=== PATIENT | male | born 1930 | race American Indian/Alaskan Native ===

== ENCOUNTER 2016-11-28 03:32 | Inpatient (IN) | payer MEDICARE ==
[2016-11-28 05:17] LABS: Basophils % (Auto) 0.3 % (0.0-1.8); Hematocrit 44.5 % (35.5-45.6); Hemoglobin 14.1 gm/dl (11.8-15.2); Mean Corpuscular HGB Conc 32 % (32-34); Mean Corpuscular Hemoglobin 28 pg (28-32); Mean Corpuscular Volume 89 fl (84-94); Platelet Count 239 K/mm3 (140-440); Red Blood Count 4.98 M/mm3 (3.65-5.03); Red Cell Distribution Width 16.2 % (13.2-15.2)
[2016-11-28 05:28] LABS: INR 1.1 (0.87-1.13)
[2016-11-28 05:44] LABS: Creatine Kinase MB 2.1 ng/mL (0.0-4.0)
[2016-11-28 05:48] LABS: Alanine Aminotransferase 6 units/L (7-56); Albumin 3.7 g/dL (3.9-5); Alkaline Phosphatase 69 units/L (35-129); Anion Gap 22 mmol/L; BUN/Creatinine Ratio 11.25; Bilirubin,Total 0.3 mg/dL (0.1-1.2); Blood Urea Nitrogen 9 mg/dL (9-20); Calcium 8.9 mg/dL (8.4-10.2); Carbon Dioxide 25 mmol/L (22-30); Chloride 96.1 mmol/L (98-107); Creatine Kinase 48 units/L (55-170); Glucose 244 mg/dL (75-100); Potassium 4.4 mmol/L (3.6-5.0); Sodium 139 mmol/L (137-145); Total Protein 7.3 g/dL (6.3-8.2)
--- NOTE | 2016-11-28 06:26 | Emergency Department Report ---
HPI - General Chief Complaint: Chest Pain Time Seen by Provider: 11/28/16 06:11 - HPI HPI: Room 1 The patient is a 85-year-old male presenting with a chief complaint chest pain. States last night the patient began complaining of intermittent left-sided chest pain. The patient acknowledges shortness of breath but denies nausea or vomiting. Patient states the pain has been intermittent and is not currently present. The patient has a history of dementia and coronary artery disease cc requiring multiple cardiac stents most recently in 2006). 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) Hx Diabetes: Yes Hx Headaches / Migraines: Yes Hx Dementia: Yes Additional medical history: Parkinsons, prev TIA, Aneurysm - Surgical History Hx Coronary Stent: Yes (Multiple) - Family History Family history: no significant - Social History Smoking Status: Former Smoker (none 50 years) Substance Use Type: None - Medications Home Medications: Home Medications Medication Instructions Recorded Confirmed Last Taken Type Aspirin [Clio Aspirin] 162 mg PO DAILY 05/01/14 11/28/16 2 Days Ago History Esomeprazole Magnesium [NexIUM] 40 mg PO DAILY 05/01/14 11/28/16 2 Days Ago History Finasteride [Proscar] 5 mg PO QDAY 05/15/14 11/28/16 2 Days Ago History Dorzolamide HCl/Timolol Maleat 1 drop OP BID 05/19/14 11/28/16 2 Days Ago History [Dorzolamide-Timolol 22.3/6.8 mg/ml] Fluorometholone [Fml Forte 0.25% 1 drop OD BID 05/19/14 11/28/16 2 Days Ago History eye drops] Donepezil [Aricept] 10 mg PO QDAY 06/18/14 11/28/16 2 Days Ago History Insulin Detemir [Levemir Flextouch] 1 unit SQ PRN PRN 10/08/15 11/28/16 Unknown History Atorvastatin Calcium [Lipitor] 20 mg PO QHS #30 cc 10/12/15 11/28/16 2 Days Ago Rx Clopidogrel Bisulfate [Plavix] 75 mg PO DAILY #30 tablet 10/12/15 11/28/16 Unknown Rx Rasagiline Mesylate [Azilect] 1 mg PO DAILY 11/28/16 11/28/16 Unknown History ED Review of Systems ROS: Stated complaint: CHEST PAIN Other details as noted in HPI Comment: All other systems reviewed and negative Constitutional: denies: chills, fever Eyes: denies: eye pain, eye discharge, vision change ENT: denies: ear pain, throat pain Respiratory: shortness of breath Cardiovascular: chest pain Endocrine: no symptoms reported Gastrointestinal: denies: abdominal pain, nausea, diarrhea Genitourinary: denies: urgency, dysuria Musculoskeletal: denies: back pain, joint swelling, arthralgia Skin: denies: rash, lesions Neurological: denies: headache, weakness, paresthesias Psychiatric: denies: anxiety, depression Hematological/Lymphatic: denies: easy bleeding, easy bruising Physical Exam - Physical Exam Vital Signs: Vital Signs 11/28/16 11/28/16 04:33 05:56 Temperature 97.7 F Pulse Rate 95 H Respiratory 16 16 Rate Blood Pressure 193/111 O2 Sat by Pulse 100 100 Oximetry Physical Exam: GENERAL: The patient is well-developed well-nourished elderly male lying on stretcher not appearing to be in acute distress. [] HEENT: Normocephalic. Atraumatic. NECK: Supple. Midline CHEST/LUNGS: Clear to auscultation. There is no respiratory distress noted. HEART/CARDIOVASCULAR: Regular. There is tachycardia. There is no gallop rub or murmur. ABDOMEN: Abdomen is soft, nontender. Patient has normal bowel sounds. There is no abdominal distention. SKIN: There is no rash. There is no edema. There is no diaphoresis. NEURO: The patient is awake and alert. The patient is cooperative. The patient has normal speech MUSCULOSKELETAL: There is no evidence of acute injury. ED Course Vital Signs 11/28/16 11/28/16 04:33 05:56 Temperature 97.7 F Pulse Rate 95 H Respiratory 16 16 Rate Blood Pressure 193/111 O2 Sat by Pulse 100 100 Oximetry ED Medical Decision Making - Lab Data Result diagrams: 11/28/16 04:58 11/28/16 04:58 Laboratory Tests 01/18/17 01/18/17 01/18/17 04:58 04:58 04:58 WBC 10.0 RBC 4.98 Hgb 14.1 Hct 44.5 MCV 89 MCH 28 MCHC 32 RDW 16.2 H Plt Count 239 Lymph % (Auto) 6.3 L [place] % (Auto) 4.2 Eos % (Auto) 0.0 Baso % (Auto) 0.3 Lymph # 0.6 L [place] # 0.4 Eos # 0.0 Baso # 0.0 Seg Neutrophils % 89.2 H Seg Neutrophils # 8.9 H PT 14.1 INR 1.10 Sodium 139 Potassium 4.4 Chloride 96.1 L Carbon Dioxide 25 Anion Gap 22 BUN 9 Creatinine 0.8 Estimated GFR > 60 BUN/Creatinine Ratio 11.25 Glucose 244 H Calcium 8.9 Total Bilirubin 0.3 AST 12 ALT 6 L Alkaline Phosphatase 69 Total Creatine Kinase 48 L CK-MB (CK-2) 2.1 CK-MB (CK-2) Rel Index 4.3 H Troponin T < 0.010 Total Protein 7.3 Albumin 3.7 L Albumin/Globulin Ratio 1.0 - EKG Data -: EKG Interpreted by Me EKG shows normal: sinus rhythm Rate: normal - EKG Data When compared to previous EKG there are: no significant change Interpretation: unchanged when compared t (10/07 2015) - Radiology Data Radiology results: report reviewed (CT chest), image reviewed (x-ray, CT chest) interpreted by me: Chest x-ray-line visualized along the periphery of the left lung concerning for pneumothorax. However lung markings are seen distal to this line. No focal infiltrates. Will order a CT of the chest CT chest (read by radiologist)-no PE, no dissection - Differential Diagnosis ACS, pericarditis, GERD, pneumothorax, PE Critical care attestation.: If time is entered above; I have spent that time in minutes in the direct care of this critically ill patient, excluding procedure time. ED Disposition Clinical Impression: Hypertension, Chest pain Disposition: OP ADMITTED IP TO THIS HOSP Is pt being admited?: Yes Does the pt Need Aspirin: Yes Condition: Fair Instructions: Hypertension (ED), Chest Pain (ED) Referrals: PRIMARY CARE, [Primary Care Provider] - 3-5 Days Time of Disposition: 07:12 (hospitalist paged)
[2016-11-28] MEDS ORDERED: ASPIRIN PO ONE (06:31)
[2016-11-28] MEDS ORDERED: SUBLIMAZE IV ONE (06:46)
--- NOTE | 2016-11-28 07:55 | Cat Scan Report ---
FINAL REPORT PROCEDURE: CT ANGIO CHEST TECHNIQUE: Computerized axial tomographic angiography of the chest and pulmonary arteries was performed after the IV injection of iodinated nonionic contrast. The image data was postprocessed using maximum intensity projection (MIP) and 2-dimensional multiplanar reformatted (MPR) techniques. The examination is specifically tailored to the evaluation of the pulmonary arteries per clinical request. HISTORY: Chest pain. Shortness of breath. Short of breath 786.09, chest pain 786.50 COMPARISON: Prior chest CT exam May 16, 2014 FINDINGS: Heart and pericardium: Normal. Thoracic aorta: Normal. Pulmonary vasculature: Normal. No pulmonary emboli. Lymph nodes: There are some nonspecific less than 1 centimeter mediastinal nodes but there is no CT evidence of distinct adenopathy by size criteria.. Lungs: There is moderate patchy increased interstitial density in the posterior right lower lobe. This was present to a lesser degree on the prior scan. Therefore there may be some element of chronic fibrotic change. This chronic fibrotic change may have progressed somewhat since prior exam although it would be impossible to exclude a mild acute interstitial infiltrate superimposed on the chronic changes. The lungs appear clear otherwise with minimal scattered fibrotic change elsewhere.. Pleural space: No effusion, thickening, or pneumothorax. Musculoskeletal structures: Minimal bony degenerative change noted.. Upper abdominal structures: There is a 5.5 centimeter cyst in the partially imaged right kidney. This is similar to the prior scan. Several small stones are noted layering dependently in the gallbladder. These were also present previously but are slightly increased in number. The enhancing focus in the upper liver described on the prior exam is not seen on today's study. There may be a small cyst in the left kidney but this is too small to characterize. This is actually smaller than on the prior scan. IMPRESSION: 1. There is no CT evidence of pulmonary embolus. 2. There is no CT evidence of thoracic aortic dissection or aneurysm. 3. Moderate patchy increased interstitial density in posterior right lower lobe noted. This was present on the prior scan but has increased slightly. Therefore this may be some slightly progressive chronic focal fibrotic change in the right lower lobe. However would be possible to exclude some element of mild acute interstitial infiltrate superimposed upon the chronic changes. 4. Multiple small stones noted in the gallbladder on the lower aspect of this chest scan. These have increased in number since prior exam. There is a large 5.5 centimeter right renal cyst, unchanged.
[2016-11-28] MEDS ORDERED: LANTUS 10 UNIT SQ PRN ×2 (08:45→19:53)
--- NOTE | 2016-11-28 08:48 | Admit Criteria Form ---
Admission Criteria Documentation: CARDIOLOGY GRG Clinical Indications for Admission to Inpatient Care ( Place 'X' for any and all applicable criteria): Hospital admission is needed for appropriate care of the patient because of ANY ONE of the following (1): [ ] I. Hemodynamic instability as indicated by ALL of the following (1)(2)(3) (4)(5) [ ]a) Vital signs or other findings not as expected for chronic patient condition or baseline [ ]b) Instability indicated by ANY ONE of the following: [ ]i) Hypotension [ ]ii) Symptomatic Tachycardia unresponsive to treatment ( e.g., analgesia, fluids, sedation as indicated) [ ]iii) Inadequate perfusion indicated by ANY ONE of the following: [ ] 1) Lactic acidosis (> 2 mmol/L) [ ] 2) New abnormal capillary refill (> 3 seconds) [ ] 3) Reduced urine output [ ] 4) New altered mental status [ ]iv) Orthostatic vital sign changes unresponsive to treatment (e.g., fluids) [ ]v) IV inotropic or vasopressor medication required to maintain adequate blood pressure or perfusion [ ] II. Severe heart failure as indicated by ANY ONE of the following(17)(18) [ ]a) Respiratory distress [ ]b) Hypotension [ ]c) Anasarca (refractory to outpatient therapy) [ ]d) Cardiac arrhythmias of immediate concern [ ]e) Myocardial ischemia [ ] III. Cardiac arrhythmias or findings of immediate concern indicated by ANY ONE of the following (19)(20): [ ] a) Heart rhythms that are inherently dangerous or unstable indicated by ANY ONE of the following (21)(22)(23): [ ] i) Resuscitated ventricular fibrillation or cardiac arrest [ ] ii) Ventricular escape rhythm [ ] iii) Sustained ventricular tachycardia (30 seconds or more of ventricular rhythm at greater than 100 beats per minute) [ ] iv) Nonsustained ventricular tachycardia and ANY ONE of the following: [ ] 1) Suspected cardiac ischemia as cause or consequence of ventricular tachycardia [ ] 2) In setting of acute myocarditis [ ] b) Unstable cardiac conduction defects indicated by ANY ONE of the following(23)(24)(25) [ ] i) Type II second-degree atrioventricular block [ ]ii) Third-degree atrioventricular block [ ]iii) New-onset left bundle branch block with suspected myocardial ischemia [ ]c) Any heart rhythm and ANY ONE of the following (21)(22)(26)(27) (28) [ ] i) Continuous long-term ECG monitoring needed (e.g., initiation of drug requiring monitoring for more than 24 hours) [ ] ii) Patient has automatic implanted cardioverter defibrillator that is repeatedly firing, malfunctioning, or in need of immediate adjustment of settings beyond the scope of ambulatory or observation care [ ]d) Heart rhythms of concern due to ANY ONE of the following: [ ] i) Hypotension [ ] ii) Respiratory distress [ ] iii) Association with other significant symptoms (e.g., bradycardia with syncope or ongoing dizziness, supraventricular tachycardia with chest pain (14)(15)(17) [ ] IV. Monitoring for cardiac contusion beyond the scope of observation care needed [A](30)(31)(32) [ ] V. Surgical or device complication (e.g., valve replacement complication , pacemaker dysfunction) (35)(41)(44)(45)(46) [ ] . Inpatient palliative care needed. [B](49) Also use Inpatient Palliative Care Criteria [ ] VII. Nonbacterial thrombotic (marantic) endocarditis (36)(43)(47)(48) [X ] VIII. Cardiology condition, symptom, or finding for which emergency and observation care has failed or are not considered appropriate. [ ] IX. Acute valvular disease requiring inpatient as indicated by ANY ONE of the following (41) [ ]a) Acute valvular regurgitation (42) [ ]b) Noninfectious valvulitis (43) [ ]c) Obstructive valve thrombosis [ ]d) Paravalvular leak [ ]e) Other significant valvular disorder remaining after emergency or observation level of care (as appropriate) [ ]X. Pericardial disease requiring inpatient treatment as indicated by ANY ONE of the following (33)(34)(35)(36)(37) [ ]a) Suspected tamponade (38)(39)(40) [ ]b) Hemopericardium [ ]c) Other significant pericardial disorder remaining after emergency or observation level of care (as appropriate) [ ] XI. Cardiac ischemia beyond scope of emergency and observation care. [ ] XII. Hypertension requiring inpatient treatment as indicated by ANY ONE of the following (6)(7)(8) [ ]a) SBP greater than 220 mm Hg or DBP greater than 120 mmHg despite treatment [ ]b) SBP greater than 140 mm Hg or DBP greater than 100 mm Hg with evidence of acute end organ damage as indicated by ANY ONE of the following [ ] i) Altered mental status [ ] ii) Acute renal failure as indicated by new onset of ANY ONE of the following (9)(10)(11)(12)(13) [ ]1) 3-fold rise in serum creatinine from baseline [ ]2) Serum creatinine greater than 4 mg/dL ( 354 micromoles/L) with acute rise greater than 0.5 mg/dL (44.2 micromoles/L) [ ]3) Reduction of more than 75% in estimated glomerular filtration rate from baseline [ ]4) Estimated glomerular filtration rate less than 35 mL/min/1.73m2 (0.59 mL/sec/1.73m2) in child up to 18 years of age [ ]5) Cessation of urine output indicated by ALL of the following [ ]A. Adequate volume status [ ]B. Inadequate urine output as indicated by ANY ONE of the following [ ]a. Urine output less than 0.3 mL/kg/hr for 24 hours [ ]b. Anuria (urine output less than 0.1 mL/kg/hr) for 12 hours [ ] iii) Aortic dissection [ ] iv) Myocardial Ischemia [ ] v) Left ventricular heart failure [ ]vi) Retinal Hemorrhage [ ]vii) Other significant finding [ ]c) Hypertension in child requiring inpatient treatment as indicated by ALL of the following(14)(15)(16) [ ] i) Outpatient treatment not effective, not available, or not appropriate [ ]ii) SBP or DBP greater than 95th percentile for age [ ]iii) Evidence of acute end organ damage as indicated by ANY ONE of the following [ ]1) Altered mental status [ ]2) Acute renal failure as indicated by new onset of ANY ONE of the following(9)(10)(11)(12)(13) [ ]A. 3-fold rise in serum creatinine from baseline [ ]B. Serum creatinine greater than 4 mg/dL (354 micromoles/L) with acute rise greater than 0.5 mg/dL (44.2 micromoles/L) [ ]C. Reduction of more than 75% in estimated glomerular filtration rate from baseline [ ]D. Estimated glomerular filtration rate less than 35 mL/min/1.73m2 (0.59 mL/sec/1.73m2) in child up to 18 years of age [ ]E. Cessation of urine output indicated by ALL of the following [ ]a. Adequate volume status [ ]b. Inadequate urine output as indicated by ANY ONE of the following [ ]i) Urine output less than 0.3 mL/kg/hr for 24 hours [ ]ii) Anuria ( urine output less than 0.1 mL/kg/hr) for 12 hours [ ]3) Severe headache [ ]4) Visual disturbance [ ]5) Retinal hemorrhage [ ]6) Other significant finding [ ]XIII. Complications of transplanted heart indicated by ANY ONE of the following(61): [ ]a) Acute graft rejection requiring inpatient management (eg, intravenous immunosuppression)(62)(63) [ ]b) Acute graft heart failure indicated by ANY ONE of the following(64): [ ]i) Hemodynamic instability [ ]ii) Cardiac arrhythmias of immediate concern [ ]iii) Pulmonary edema that is very severe (eg, mechanical ventilation needed, imminent or likely, need for 100% oxygen to keep oxygen saturation above 90%) [ ]iv) Pulmonary edema that is persistent as indicated by ALL of the following: [ ]1) New need for oxygen therapy to keep oxygen saturation above 90% (or increased FiO2 need from baseline) [ ]2) Has not improved sufficiently with emergency department or observation care IV diuretics or other heart failure treatments[E] [ ]v) Altered mental status that is severe or persistent [ ]vi) Increased creatinine (new on laboratory test) with reduction of more than 50% in estimated glomerular filtration rate from baseline [ ]vii) Progressively (ongoing) rising creatinine (known from past laboratory test) with reduction of more than 25% in estimated glomerular filtration rate from baseline [ ]viii) Acute renal failure [ ]ix) Acute peripheral ischemia (eg, examination shows pulseless, cool, mottled, or cyanotic extremity) [ ]x) Pulmonary artery catheter monitoring needed [ ]xi) Other sign or symptom of heart failure requiring inpatient treatment (ie, too severe or not responsive to outpatient and observation care treatment) [ ]c) Infection requiring inpatient management (eg, Hemodynamic instability, need for intravenous antimicrobial treatment)(66)(67)(68)(69)(70) [ ]d) Cardiac allograft vasculopathy requiring inpatient management ( eg evidence of cardiac ischemia)(71) [ ]e) Other complication of transplanted heart (eg, stroke, severe pulmonary hypertension, severe valvular dysfunction) requiring inpatient management(72) The original [facility] [employer] content created by [email or web address] has been revised. The portions of the content which have been revised are identified through the use of italic text or in bold, and [facility] has neither reviewed nor approved the modified material. All other unmodified content is copyright [facility] [email or web address]. Please see references footnoted in the original [facility] [email or web address] edition 2016 Admission Criteria Met: Yes
[2016-11-28] MEDS ORDERED: ASPIRIN ONE (09:10)
[2016-11-28] MEDS ORDERED: ASPIRIN PO SCH (10:00)
[2016-11-28] MEDS ORDERED: NON-FORMULARY (Fluorometholone [Fml Forte 0.25% Eye Drops] 1 DROP) OD SCH (10:00)
[2016-11-28] MEDS ORDERED: RASAGILINE MESYLATE 1 MG PO SCH (10:00)
[2016-11-28] MEDS ORDERED: DORZOLAMIDE HCL OP SCH (10:00)
[2016-11-28] MEDS ORDERED: [UNRECOGNIZED DRUG - OTHER] OP SCH (10:00)
[2016-11-28] MEDS ORDERED: BABY ASPIRIN PO SCH (10:00)
[2016-11-28] MEDS ORDERED: TIMOLOL OP SCH (10:00)
[2016-11-28] MEDS ORDERED: NON-FORMULARY (Esomeprazole Magnesium [Nexium] 40 MG) PO SCH (10:00)
[2016-11-28] MEDS ORDERED: ZESTRIL ONE (10:57)
[2016-11-28] MEDS: PLAVIX PO SCH (11:19)
[2016-11-28] MEDS: PEPCID IV SCH (11:19)
[2016-11-28] MEDS: ZESTRIL PO SCH (11:19)
[2016-11-28] MEDS ORDERED: D50W (25GM) IV PRN (11:30)
[2016-11-28] MEDS ORDERED: MORPHINE IV PRN (11:30)
[2016-11-28] MEDS: PROSCAR PO SCH (12:41)
[2016-11-28] MEDS: ARICEPT PO SCH (12:41)
[2016-11-28] MEDS: NOVOLOG SUB-Q SCH ×3 (13:06→22:28)
--- NOTE | 2016-11-28 15:44 | Consultation ---
Addendum entered and electronically signed by LILO THOMPSON MD 11/28/16 19:10 : This patient is a frail, elderly 85-year-old man who is admitted with atypical chest pain. Well-known to our practice, history of coronary artery disease with multivessel coronary artery stents placed in March 2012. In late 2011, a repeat cardiac catheterization revealed all 3 vessel stents to be widely patent. Following his coronary interventions, has had difficulties with oral antiplatelet therapy. There was initial stent thrombosis while on Plavix, and this was changed to Effient. The patient developed some GI tolerance to Effient , and was switched to Brilinta. Immediately, Brilinta had to be discontinued in July 2014 after the patient developed a hemorrhagic CVA. He has an ischemic cardiomyopathy, most recent left ventricular ejection fraction was 35- 40%. Recommendations: Patient's chest pain is atypical, no further ischemic cardiac workup is indicated for nonanginal chest pain. We'll optimize medical therapy for underlying coronary artery disease. Due to frailty and advanced age, we will pursue a conservative cardiac approach to management. Original Note: History of Present Illness Consult date: 11/28/16 Consult reason: chest pain History of present illness: Patient is an 85yr old male who presents to the ED with chest pain. Patient reports left sided chest pain that travels across his chest. Pain reproducible with palpation. Noted with a systolic BP of 193. His ECG shows a sinus rhythm with twave abnormalities. No acute changes from prior. History unobtainable due to Dementia. Cardiology consultation requested. Medications and Allergies Allergies Allergy/AdvReac Type Severity Reaction Status Date / Time codeine Allergy Hives Verified 05/01/14 02:59 shellfish derived Allergy Hives Verified 10/07/15 14:35 carbidopa [From Sinemet] AdvReac Dizziness Verified 10/09/15 09:21 levodopa [From Sinemet] AdvReac Dizziness Verified 10/09/15 09:21 Home Medications Medication Instructions Recorded Confirmed Last Taken Type Aspirin [[place]elson Aspirin] 162 mg PO DAILY 05/01/14 11/28/16 2 Days Ago History Esomeprazole Magnesium [NexIUM] 40 mg PO DAILY 05/01/14 11/28/16 2 Days Ago History Finasteride [Proscar] 5 mg PO QDAY 05/15/14 11/28/16 2 Days Ago History Dorzolamide HCl/Timolol Maleat 1 drop OP BID 05/19/14 11/28/16 2 Days Ago History [Dorzolamide-Timolol 22.3/6.8 mg/ml] Fluorometholone [Fml Forte 0.25% 1 drop OD BID 05/19/14 11/28/16 2 Days Ago History eye drops] Donepezil [Aricept] 10 mg PO QDAY 06/18/14 11/28/16 2 Days Ago History Insulin Detemir [Levemir Flextouch] 1 unit SQ PRN PRN 10/08/15 11/28/16 Unknown History Atorvastatin Calcium [Lipitor] 20 mg PO QHS #30 cc 10/12/15 11/28/16 2 Days Ago Rx Clopidogrel Bisulfate [Plavix] 75 mg PO DAILY #30 tablet 10/12/15 11/28/16 Unknown Rx QUEtiapine [SEROquel] 6.25 mg PO DAILY PRN 11/28/16 11/28/16 Unknown History Rasagiline Mesylate [Azilect] 1 mg PO DAILY 11/28/16 11/28/16 Unknown History Active Meds: Active Medications Aspirin (Aspirin) 325 mg PO QDAY [facility] Atorvastatin Calcium (Lipitor) 20 mg PO QHS [facility] Clopidogrel Bisulfate (Plavix) 75 mg PO DAILY [facility] Last Admin: 11/28/16 11:19 Dose: 75 mg Dextrose (D50w (25gm)) 50 ml IV PRN PRN PRN Reason: Hypoglycemia Donepezil HCl (Aricept) 10 mg PO QDAY [facility] Last Admin: 11/28/16 12:41 Dose: 10 mg Enoxaparin Sodium (Lovenox) 40 mg SUB-Q QDAY@2200 [facility] Famotidine (Pepcid) 20 mg IV QDAY [facility] Last Admin: 11/28/16 11:19 Dose: 20 mg Finasteride (Proscar) 5 mg PO QDAY [facility] Last Admin: 11/28/16 12:41 Dose: 5 mg Insulin Aspart (Novolog) 0 units SUB-Q [facility] PRN Reason: Protocol Last Admin: 11/28/16 13:06 Dose: 3 units Lisinopril (Zestril) 40 mg PO QDAY [facility] Last Admin: 11/28/16 11:19 Dose: 40 mg Miscellaneous Medication (Dorzolamide Hcl/Timolol Maleat [Dorzolamide-Timolol 22.3/6.8 Mg/Ml]) 1 drop OP BID [facility] Miscellaneous Medication (Fluorometholone [Fml Forte 0.25% Eye Drops]) 1 drop OD BID [facility] Miscellaneous Medication (Lantus) 10 unit SQ PRN PRN PRN Reason: high glucose Miscellaneous Medication (Rasagiline Mesylate [Azilect]) 1 mg PO DAILY [facility] Morphine Sulfate (Morphine) 2 mg IV Q4H PRN PRN Reason: Pain, Moderate (4-6) Nitroglycerin (Nitro Dur) 0.1 mg TD QDAY@0600 [facility] Physical Examination Vital Signs Pulse Resp Pulse Ox 101 H 12 90 11/28/16 04:27 11/28/16 04:27 11/28/16 04:27 General appearance: no acute distress Neck: Positive: trachea midline Cardiac: Positive: Reg Rate and Rhythm Lungs: Positive: Decreased Breath Sounds Results 11/28/16 04:58 11/28/16 04:58 Lipids 11/28/16 Range/Units 07:47 Triglycerides 48 (2-149) mg/dL Cholesterol 184 (50-199) mg/dL HDL Cholesterol 64 H (40-59) mg/dL Cholesterol/HDL Ratio 2.87 % Assessment and Plan Chest pain, atypical Dementia Hypertension Nonspecific elevated troponin
--- NOTE | 2016-11-28 19:00 | History and Physical Report ---
History of Present Illness Date of examination: 11/28/16 Date of admission: 11/28/16 07:29 Chief complaint: Chest pain, one day duration History of present illness: Patient is an 85-year-old gentleman who was a history of coronary artery disease status post a PCI, myocardial infarction, blindness, diabetes mellitus and Parkinson's disease who lives with his son who is his caregiver, who brought pt into the emergency department today because of a complaint of left- sided chest pain. Patient who is demented and unable to make his needs known was unable to give any history. History was therefore obtained from his sons who were in the room at the time of this evaluation. There was no further, nausea vomiting, or chills. Basal syndrome I started the patient is DO NOT RESUSCITATE. Past History Past Medical History: acute HI, diabetes, hypertension, other (Parkinson's disease, blindness, cerebral aneurysm) Medications and Allergies Allergies Allergy/AdvReac Type Severity Reaction Status Date / Time codeine Allergy Hives Verified 05/01/14 02:59 shellfish derived Allergy Hives Verified 10/07/15 14:35 carbidopa [From Sinemet] AdvReac Dizziness Verified 10/09/15 09:21 levodopa [From Sinemet] AdvReac Dizziness Verified 10/09/15 09:21 Home Medications Medication Instructions Recorded Confirmed Last Taken Type Aspirin [[place] Aspirin] 162 mg PO DAILY 05/01/14 11/28/16 2 Days Ago History Esomeprazole Magnesium [NexIUM] 40 mg PO DAILY 05/01/14 11/28/16 2 Days Ago History Finasteride [Proscar] 5 mg PO QDAY 05/15/14 11/28/16 2 Days Ago History Dorzolamide HCl/Timolol Maleat 1 drop OP BID 05/19/14 11/28/16 2 Days Ago History [Dorzolamide-Timolol 22.3/6.8 mg/ml] Fluorometholone [Fml Forte 0.25% 1 drop OD BID 05/19/14 11/28/16 2 Days Ago History eye drops] Donepezil [Aricept] 10 mg PO QDAY 06/18/14 11/28/16 2 Days Ago History Insulin Detemir [Levemir Flextouch] 1 unit SQ PRN PRN 10/08/15 11/28/16 Unknown History Atorvastatin Calcium [Lipitor] 20 mg PO QHS #30 cc 10/12/15 11/28/16 2 Days Ago Rx Clopidogrel Bisulfate [Plavix] 75 mg PO DAILY #30 tablet 10/12/15 11/28/16 Unknown Rx QUEtiapine [SEROquel] 6.25 mg PO DAILY PRN 11/28/16 11/28/16 Unknown History Rasagiline Mesylate [Azilect] 1 mg PO DAILY 11/28/16 11/28/16 Unknown History Active Meds: Active Medications Aspirin (Aspirin) 325 mg PO QDAY [facility] Atorvastatin Calcium (Lipitor) 20 mg PO QHS [facility] Clopidogrel Bisulfate (Plavix) 75 mg PO DAILY [facility] Last Admin: 11/28/16 11:19 Dose: 75 mg Dextrose (D50w (25gm)) 50 ml IV PRN PRN PRN Reason: Hypoglycemia Donepezil HCl (Aricept) 10 mg PO QDAY [facility] Last Admin: 11/28/16 12:41 Dose: 10 mg Enoxaparin Sodium (Lovenox) 40 mg SUB-Q QDAY@2200 [facility] Famotidine (Pepcid) 20 mg IV QDAY [facility] Last Admin: 11/28/16 11:19 Dose: 20 mg Finasteride (Proscar) 5 mg PO QDAY [facility] Last Admin: 11/28/16 12:41 Dose: 5 mg Insulin Aspart (Novolog) 0 units SUB-Q ACHS [facility] PRN Reason: Protocol Last Admin: 11/28/16 17:20 Dose: Not Given Lisinopril (Zestril) 40 mg PO QDAY [facility] Last Admin: 11/28/16 11:19 Dose: 40 mg Miscellaneous Medication (Dorzolamide Hcl/Timolol Maleat [Dorzolamide-Timolol 22.3/6.8 Mg/Ml]) 1 drop OP BID [facility] Miscellaneous Medication (Fluorometholone [Fml Forte 0.25% Eye Drops]) 1 drop OD BID [facility] Miscellaneous Medication (Lantus) 10 unit SQ PRN PRN PRN Reason: high glucose Miscellaneous Medication (Rasagiline Mesylate [Azilect]) 1 mg PO DAILY [facility] Morphine Sulfate (Morphine) 2 mg IV Q4H PRN PRN Reason: Pain, Moderate (4-6) Nitroglycerin (Nitro Dur) 0.1 mg TD QDAY@0600 [facility] Quetiapine Fumarate (Seroquel) 6.25 mg PO DAILY PRN PRN Reason: Agitation Last Admin: 11/28/16 17:30 Dose: 6.25 mg Review of Systems ROS unobtainable: due to mental status Exam - Constitutional Vitals: Temp Pulse Resp BP Pulse Ox 97.7 F 96 H 14 146/74 98 11/28/16 04:33 11/28/16 15:03 11/28/16 16:49 11/28/16 15:03 11/28/16 16:49 General appearance: Present: no acute distress, well-nourished, other (bedbound , unable to communicate intelligently) - EENT Eyes: Present: PERRL ENT: clear oral mucosa - Neck Neck: Present: supple, normal ROM - Respiratory Respiratory effort: normal Respiratory: bilateral: CTA - Cardiovascular Heart Sounds: Present: S1 & S2. Absent: rub, click - Extremities Extremities: pulses symmetrical, No edema Peripheral Pulses: within normal limits - Abdominal General gastrointestinal: Present: soft, non-tender, non-distended, normal bowel sounds Male genitourinary: Present: normal - Integumentary Integumentary: Present: clear, warm, dry - Musculoskeletal Musculoskeletal: gait normal, strength equal bilaterally - Psychiatric Psychiatric: appropriate mood/affect, intact judgment & insight - Neurologic Neurologic: CNII-XII intact, moves all extremities Results - Labs CBC & Chem 7: 11/28/16 04:58 11/28/16 04:58 Labs: Abnormal lab results 11/28/16 11/28/16 11/28/16 Range/Units 07:47 10:43 12:35 POC Glucose 255 H (70-105) Troponin T 0.045 H D 0.082 H D (0.00-0.029) ng/mL HDL Cholesterol 64 H (40-59) mg/dL 11/28/16 Range/Units 17:16 POC Glucose 121 H (70-105) Troponin T (0.00-0.029) ng/mL HDL Cholesterol (40-59) mg/dL Assessment and Plan Assessment 1. Chest pain: Obtain serial cardiac enzymes, Commence patient on aspirin, morphine, beta blockers, oxygen. 2. Coronary artery disease status post S/P PCI with prior history of myocardial infraction: Commence patient metoprolol, atorvastatin, lisinopril. 3. Accelerated hypertension: Optimize blood pressure control with lisinopril, commenced at home medication. 4. Diabetes mellitus T2: Commence sliding scale insulin, obtain A1c, urine microalbumin, constant provided diet. 5. Alzheimer's dementia: Continue with Aricept. 6. DVT prophylaxis with Lovenox and GI with Pepcid Spent 30 minutes and direct patient care during his admission process which includes that of physical examination, review laboratory and radiological data, and explanation of management plan to the patient's family members.
[2016-11-28] MEDS ORDERED: LOVENOX SUB-Q SCH (22:00)
[2016-11-28] MEDS ORDERED: LEVEMIR SUB-Q SCH (22:00)
[2016-11-29] MEDS ORDERED: NITRO DUR TD SCH (06:00)
[2016-11-29] MEDS ORDERED: ASPIRIN PO SCH (10:00)
[2016-11-29] MEDS: NOVOLOG SUB-Q SCH (10:35)
[2016-11-29] MEDS: PEPCID IV SCH (11:27)
[2016-11-29] MEDS: ARICEPT PO SCH (11:27)
[2016-11-29] MEDS: PLAVIX PO SCH (11:27)
[2016-11-29] MEDS: ZESTRIL PO SCH (11:28)
[2016-11-29] MEDS: PROSCAR PO SCH (11:28)
--- NOTE | 2016-11-29 11:35 | Progress Note ---
Addendum entered and electronically signed by LILO THOMPSON MD 11/29/16 14:17 : The patient is frail, cachectic, elderly, has advanced dementia and is legally blind. He is not a candidate for any aggressive cardiac evaluation on therapies. The family members are interested in a home hospice situation, and I have made a consultation with case management to effect this. Continue medical therapy for coronary artery disease. Original Note: Assessment and Plan Chest pain, atypical Dementia Hypertension Nonspecific elevated troponin Hx of coronary artery disease with multivessel coronary artery stents placed in March 2012. Late 2011, a repeat cardiac catheterization revealed all 3 vessel stents to be widely patent. Hx of hemorrhagic CVA Ischemic cardiomyopathy most recent left ventricular ejection fraction was 35-40%. Recommendations: No further cardiac workup is indicated Medical therapy for coronary artery disease. Due to frailty and advanced age, we will pursue a conservative cardiac approach to management. Subjective Date of service: 11/29/16 Interval history: Patient resting in bed comfortably. Family members at bedside. Objective Vital Signs Temp Pulse Pulse Resp BP BP Pulse Ox 11/29/16 10:00 97 11/29/16 07:24 98.4 F 88 16 149/70 94 11/29/16 06:03 78 153/70 11/29/16 04:05 97.6 F 78 20 153/70 96 11/29/16 00:41 89 11/29/16 00:05 97.3 F L 78 22 142/78 97 11/28/16 22:00 18 11/28/16 20:19 97.6 F 82 24 147/71 99 11/28/16 16:49 14 98 11/28/16 15:03 96 H 12 146/74 100 11/28/16 15:02 101 H 173/110 11/28/16 14:02 173/110 92 11/28/16 13:02 173/110 75 L 11/28/16 12:00 107 H 10 L 173/110 99 - Physical Examination General: No Apparent Distress Cardiac: Positive: Reg Rate and Rhythm Lungs: Positive: Decreased Breath Sounds
[2016-11-29 11:50] VITALS: BP 135/69
--- NOTE | 2016-11-29 11:55 | Discharge Summary ---
Providers - Providers Date of Admission: 11/28/16 07:29 Date of discharge: 11/29/16 Attending physician: GROVER LANGE 11/28/16 09:03 Consult to Physician [CONS] Routine Consulting Provider: LILO THOMPSON Reason For Exam: Chest pain Place consult to:: [facility] Notified:: PLEASE CALL MD IN AM Was contact made?: Yes Comment:: Discusse with [employer]FORM[employer]CH[employer] 11/28/16 19:40 Consult to Case Management [CONS] Routine Services Needed at Discharge: Other Notified:: yes Comment:: home hospice Primary care physician: [employer] Hospitalization Condition: Fair Disposition: DC TO HOSPICE (HOME) - Discharge Diagnoses (1) Angina pectoris Status: Acute (2) Hypertension Status: Chronic (3) Hyperlipidemia Status: Chronic (4) Diabetes mellitus type 2 in nonobese Status: Chronic (5) CAD (coronary artery disease) Status: Chronic Core Measure Documentation - Palliative Care Palliative Care/ Comfort Measures: Not Applicable Exam - Constitutional Vitals: Temp Pulse Resp BP Pulse Ox 97.9 F 88 22 135/69 97 11/29/16 11:49 11/29/16 11:49 11/29/16 11:49 11/29/16 11:49 11/29/16 11:49 Plan Activity: advance as tolerated Diet: low fat, low cholesterol, low salt Additional Instructions: 1.Follow up with PCP in 1 week. 2.Follow up with principal security architect in 1 week. 3.Home hospice. Follow up with: PRIMARY CAREMD [Primary Care Provider] - 3-5 Days Prescriptions: Famotidine [Pepcid] 20 mg PO BID #60 tablet ISOSORBIDE MONOnitrate [Imdur ER] 30 mg PO DAILY #30 tab.er.24h
--- NOTE | 2016-11-30 08:08 | XRay Report ---
AP CHEST: HISTORY: chest pain AP view of the chest demonstrates a normal mediastinal and cardiac contour with clear lungs and normal bony and soft tissue structures. IMPRESSION: No acute cardiopulmonary process. No significant change since 10/07/15.
[2016-11-30] MEDS ORDERED: PEPCID PO SCH (10:00)
--- NOTE | 2016-12-04 11:16 | Query- Immobilty ---
Dear Date:_12/04/16 Pocket Operator/CDS:Zac Espinoza Phone#:_[phone] Exercise your independent professional judgment when responding to this query. Questions asked do not imply a particular answer is desired or expected. We greatly appreciate your clarification on this issue. Clinical Documentation States: 85 Y/O Male admitted on 11/28/16 with Hx. of CAD, Dementia, Blindness and Parkinsons disease presents with left sided chest pain. Patient is bedbound, unable to communicate and made DNR by the family. Clinical Findings Show: Alzheimer dementia on Aricept Please identify whether the condition is: [ ] Quadriplegia [ ] Other Quadriplegia [ ] Quadriplegia, C1-C4, Complete [ ] Functional Quadriplegia [ ] Quadriplegia, C1-C4, Incomplete [ ] Critical Illness Myopathy [ ] Quadriplegia, C5-C7, Complete [ ] Locked-in state [ ] Quadriplegia, C5-C7, Incomplete [ ] Immobility due to frailty or Severe physical disability [ x ] Other:generalized weakness [ ] Comment/Explanation: Present on Admission: [x ] Yes (Y) [ ] Clinically undeterminable (W) [ ] No (N) Please also document response in your Progress Notes and/or Discharge Summary and indicate if the condition was present on admission. AWAIS
--- NOTE | 2016-12-04 11:23 | Query- Nutrition ---
Dear Date:_12/04/16 Trim And Burr Operator/CDS:Chantelle/Anirudh Espinoza Phone#:__[phone] Exercise your independent professional judgment when responding to query. Questions asked do not imply a particular answer is desired or expected. We greatly appreciate your clarification on this issue. Clinical Documentation States: 85 Y/O Male admitted on 11/28/16 with Hx. of CAD, DM, [place], Blindness and Parkinson disease presented with left sided chest pain. Patient is bedbound, unable to communicate, frail and cachectic per progress note. Patient made DNR by family Clinical Findings Show: BMI:16.3 Lymphocytes:600 Please select the most appropriate option 3 [] Mild Malnutrition [] Mild - Moderate Malnutrition [] Moderate - Severe Malnutrition [x] Severe Malnutrition Serum Albumin 2.8 to 3.4 g/dl or Pre-albumin 5 to 17 mg/dl1,2 Inadequate nutritional intake1,2,3,4 NPO > 5 days Weight loss: 5% in 1 month or 7.5% in 3 months or 10% in 6 months1, 3,4 BMI 16 to 18.4 or Weight <90% of ideal body weight1,2,3,4 Serum Albumin < 2.8 g/ dl1,2 Lymphocytes < 1500/ L2 Inadequate nutritional intake3, high stress e.g. major trauma, sepsis,pancreatitis, argueta etc. Decubitus ulcers1,2, , skin breakdown2, easy hair pluckability2 Weight <80% standard for height2 Triceps skin fold <3 mm2 Mid-arm muscle circumference <15 cm2 Creatinine-height index <60% standard2 [ ] Cachexia [ ] Emaciated w/Malnutrition [ ] Other: [ ] Unable to determine [ ] Comment/Explanation: Present on Admission: [ x] Yes (Y) [ ] Clinically undeterminable (W) [ ] No (N) Please also document response in your Progress Notes and/or Discharge Summary and indicate if the condition was present on admission. MTDD
== END 2016-11-29 16:37 | disposition hospice, home (50) | DRG 302 ==
LOC: ED 03:32 → 4A 07:29
PROVIDERS: ADMIT Family Medicine; ATTEND Internal Medicine
DX: I25.119 Atherosclerotic heart disease of native coronary artery with unspecified angina pectoris (principal); E43 Unspecified severe protein-calorie malnutrition; I10 Essential (primary) hypertension; G30.9 Alzheimer's disease, unspecified; G43.909 Migraine, unspecified, not intractable, without status migrainosus; G20 Parkinson's disease; F02.80 Dementia in other diseases classified elsewhere, unspecified severity, without behavioral disturbance, psychotic disturbance, mood disturbance, and anxiety; I42.9 Cardiomyopathy, unspecified; H54.0 Blindness, both eyes; E11.9 Type 2 diabetes mellitus without complications; Z88.8 Allergy status to other drugs, medicaments and biological substances; Z86.73 Personal history of transient ischemic attack (TIA), and cerebral infarction without residual deficits; I25.2 Old myocardial infarction; Z88.5 Allergy status to narcotic agent; Z95.5 Presence of coronary angioplasty implant and graft; Z98.890 Other specified postprocedural states; Z87.891 Personal history of nicotine dependence; Z79.899 Other long term (current) drug therapy; Z91.013 Allergy to seafood; Z79.82 Long term (current) use of aspirin; Z66 Do not resuscitate
CPT/HCPCS: 36415; 71010; 71275; 80053; 80061; 82550; 82553; 82962; 84484; 85025; 85610; 93005; 93010; 94760; A9270-GY; J1650; J1815; J1818; Q9967